=== PATIENT | female | born 1945 | race Caucasian/White ===

== ENCOUNTER 2016-10-22 09:50 | Outpatient (CLI) | payer OTHER ==
--- NOTE | 2016-10-30 08:31 | DIAGNOSTIC IMAGING REPORT ---
PROCEDURE: MG BILATERAL SCREENING W/CAD INDICATION: SCREENING TECHNIQUE: Bilateral CC and MLO digital views. COMPARISON: Mammograms 06/30/2015, 12/20/2013 and 11/08/2012. FINDINGS: Computer-aided detection applied. Moderately dense with scattered dystrophic calcifications. No significant interval change. IMPRESSION: 1. Negative mammogram RESULT CODE: 1- Negative. A. A negative report should not delay biopsy if a dominant or clinically suspicious mass is present. 10-15% of cancers are not identified by x-ray. B. A negative report may reinforce clinical impression. C. Adenosis and dense breasts may obscure an underlying neoplasm. D. False positive reports average 6-10%. E.. A yearly screening mammogram is recommended. A reminder letter will be scheduled.
== END 2016-10-22 23:00 | disposition home or self-care (01) ==
LOC: MAM SRH 09:50
DX: Z12.31 Encounter for screening mammogram for malignant neoplasm of breast (principal)